=== PATIENT | female | born 2000 | race Hispanic/Latino ===

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

== ENCOUNTER 2022-01-05 21:34 | Emergency (ER) | payer MEDICAID, OTHER ==
[~2022-01-05] VITALS: Ht 160 cm; Wt 96.2 kg
[2022-01-05 21:36] VITALS: BP 127/99
[2022-01-05] MEDS ORDERED: IBUPROFEN 600 MG TABLET PO ONE (23:30)
[2022-01-05] MEDS ORDERED: IBUP-2070 PO (23:37)
== END 2022-01-05 23:57 | disposition home or self-care (01) ==
LOC: EDH 21:34
DX: S93.402A Sprain of unspecified ligament of left ankle, initial encounter (principal); X58.XXXA Exposure to other specified factors, initial encounter; Y93.89 Activity, other specified; Y92.89 Other specified places as the place of occurrence of the external cause; Y99.8 Other external cause status
CPT/HCPCS: 73610; 81025